=== PATIENT | male | born 1945 | race African-American/Black ===

== ENCOUNTER 2024-02-16 01:59 | Emergency (ER) | payer BC, OTHER ==
[~2024-02-16] VITALS: Ht 185.4 cm; Wt 94.0 kg
[2024-02-16 02:48] LABS: Basophils # (auto) 0 10 ^3/uL (0-0.2); Basophils % (auto) 0.9 % (0.0-2.0); Eosinophils # (auto) 0.2 10 ^3/uL (0-0.8); Eosinophils % (auto) 4.9 % (0.0-7.0); Hematocrit 40.9 % (41.0-53.0); Hemoglobin 13.2 g/dL (13.5-17.5); Lymphocytes # (auto) 1.1 10 ^3/uL (0.4-5.4); Lymphocytes % (auto) 31.6 % (10.0-50.0); Mean Corpuscular Hemoglobin 27.4 pg (28.0-32.0); Mean Corpuscular Hgb Conc. 32.3 g/dL (32.0-36.0); Mean Corpuscular Volume 84.8 fL (80.0-100.0); Monocytes # (auto) 0.3 10 ^3/uL (0-1.3); Monocytes % (auto) 9.1 % (0.0-12.0); Neutrophils # (auto) 1.9 10 ^3/uL (1.6-8.6); Neutrophils % (auto) 53.5 % (37.0-80.0); Nucleated Red Blood Cells % 0.3 %; Platelet Count (auto) 173 10^3/uL (140-450); Red Blood Cells 4.82 10^6/uL (4.5-5.90); Red Cell Distribution Width 13.3 % (11.8-14.3); White Blood Cell 3.5 10^3/uL (4.4-10.8)
[2024-02-16 03:10] LABS: Chloride 110 mmol/L (98-107); Potassium 3.1 mmol/L (3.5-5.1); Sodium 142 mmol/L (136-145)
[2024-02-16 03:11] LABS: Anion Gap 9 (5-15); Carbon Dioxide 23 mmol/L (20-31)
[2024-02-16 03:16] LABS: BUN/Creatinine Ratio 11.3 (10.0-20.0); Blood Urea Nitrogen 19 mg/dL (9-23); Glucose 107 mg/dL (74-106)
[2024-02-16] MEDS: cloNIDine HCL 0.1 MG TAB PO ONE (03:39)
[2024-02-16] MEDS: SODIUM CHLORIDE 0.9% 1,000 ML IV ONE (03:45)
[2024-02-16] MEDS: cefTRIAXone 1GM/50ML D5W 50 ML IV ONE (03:45)
[2024-02-16 03:49] LABS: Urine Bacteria None Seen /hpf (None Seen); Urine WBC None Seen /hpf (0 - 3)
[2024-02-16 04:33] VITALS: PULSE 81; RESP 16; O2SAT 97
[2024-02-16 04:37] VITALS: PULSE 81; TEMP 98.9
[2024-02-16 04:43] LABS: Urine Color Red (Yellow); Urine Specific Gravity 1.045 (1.001-1.035)
[2024-02-16 04:44] LABS: Urine Clarity Bloody (Clear)
[2024-02-16 05:15] VITALS: BP 192/94; RESP 12; O2SAT 97
[2024-02-16] MEDS ORDERED: ONDANSETRON HCL 4 MG/2 ML VIAL IV ONE (07:00)
[2024-02-16] MEDS ORDERED: TAMS-35 PO (07:27)
[2024-02-16] MEDS ORDERED: NITR-87 PO (07:27)
== END 2024-02-16 08:01 | disposition home or self-care (01) ==
LOC: ER 01:59
DX: N40.1 Benign prostatic hyperplasia with lower urinary tract symptoms (principal); K80.20 Calculus of gallbladder without cholecystitis without obstruction; I16.0 Hypertensive urgency; R33.8 Other retention of urine
CPT/HCPCS: 36415; 51702; 74176; 80048; 81001; 85025; 96365; 99285; J0696; J2405; J7030